=== PATIENT | male | born 1975 | race African-American/Black ===

== ENCOUNTER 2017-10-09 09:31 | Day surgery (SDC) | payer BC ==
[~2017-10-09] VITALS: Ht 172.7 cm; Wt 129.3 kg
[2017-10-09] MEDS ORDERED: CRESTOR10 MG PO (10:04)
[2017-10-09] MEDS ORDERED: LOPRESSOR25 MG PO (10:04)
[2017-10-09] MEDS ORDERED: APRESOLINE50 MG PO (10:04)
[2017-10-09] MEDS ORDERED: LASIX40 MG PO (10:05)
[2017-10-09] MEDS ORDERED: CALCITRIOL0.5 MCG PO (10:06)
[2017-10-09] MEDS ORDERED: INSULIN PUMP SC (10:12)
[2017-10-09 10:20] VITALS: BP 159/85
[2017-10-09 10:25] LABS: HEMATOCRIT 34.4 % (38.0-50.0); HEMOGLOBIN 11.7 G/DL (12.5-16.6); MCH 29.1 PG (29.0-34.0); MCV 85.6 FL (86-99); PLATELET COUNT 316 K/uL (156-360); RBC DIS.WIDTH-CV 12.5 % (11.8-14.6); RBC DIS.WIDTH-SD 39.3 % (39-53); RED BLOOD COUNT 4.02 M/uL (4.00-5.50); WHITE BLOOD COUNT 8.7 K/uL (4.1-10.2)
[2017-10-09 10:38] LABS: CHLORIDE 114 mEq/L (99-109); POTASSIUM 4.6 mEq/L (3.7-5.4); SODIUM 144 mEq/L (136-147)
[2017-10-09 10:40] LABS: GLUCOSE 117 mg/dL (70-99)
[2017-10-09 10:44] LABS: GFR ESTIMATE (CALCULATED) 11 mL/min/ (58.99-99999); UREA NITROGEN (BUN) 56 mg/dL (9-23)
[2017-10-09] MEDS ORDERED: NORCO 5/3251 TABLET PO (16:24)
[2017-10-09 18:55] VITALS: BP 187/93
[2017-10-09 20:01] VITALS: BP 162/80; BP 187/97
[2017-10-09 21:36] VITALS: BP 178/92
== END 2017-10-09 21:36 | disposition home or self-care (01) ==
LOC: SDC 09:31
PROVIDERS: Surgery
PROC: 0WHG43Z Insertion of Infusion Device into Peritoneal Cavity, Percutaneous Endoscopic Approach (ICD-10-PCS; principal; 2017-10-09)
DX: I12.0 Hypertensive chronic kidney disease with stage 5 chronic kidney disease or end stage renal disease (principal); E11.22 Type 2 diabetes mellitus with diabetic chronic kidney disease; N18.6 End stage renal disease; Z99.2 Dependence on renal dialysis; E78.5 Hyperlipidemia, unspecified; J45.909 Unspecified asthma, uncomplicated
CPT/HCPCS: 80048; 82948; 85027; C1750; J0360; J0690; J1100; J1170; J2250; J2405; J2710; J3010; J7643; S0020